=== PATIENT | male | born 1965 | race American Indian/Alaskan Native ===

== ENCOUNTER 2017-12-01 20:49 | Observation (INO) ==
[2017-12-01] MEDS ORDERED: Isovue-370 500 ML INFUS..BTL IV ONE ×2 (20:51→21:12)
--- NOTE | 2017-12-01 20:58 | Emergency Department Note ---
Disposition Clinical Impression: Neurological deficit present Altered mental status Qualifiers: Altered mental status type: unspecified Qualified Code(s): R41.82 - Altered mental status, unspecified Disposition: Admitted As Inpatient Condition: Fair Time of Disposition: 22:46 Neuro HPI - General Stated Complaint: Stroke Alert Time Seen by Provider: 12/01/17 20:50 Source: patient, EMS Mode of arrival: EMS Limitations: other (aphasia ) Nursing Notes Reviewed: Yes Vital Signs Reviewed: Yes - History of Present Illness HPI Narrative: Patient presents to the ED as an [id number] stroke alert. Patient was seen and evaluated immediately upon on arrival. On his way to CT. Reportedly 30 minutes prior to calling EMS. The patient had the abrupt onset of left- sided weakness and aphasia with dysarthria. No previous history of stroke. She also complaining of left-sided chest discomfort. He is unable to speak to his discomfort, but points to the area of his left chest and left shoulder with where the pain is. Denies any abdominal pain or vomiting. - Related Data Home Medications: Home Medications Medication Instructions Recorded Confirmed Flonase puff AER DAILY 12/02/17 Fluoxetine 20 mg PO DAILY 12/02/17 12/02/17 Gabapentin/Capsi/Me-Deacon/Menth 300 mg PO TID 12/02/17 12/02/17 Allergies/Adverse Reactions: Allergies Allergy/AdvReac Type Severity Reaction Status Date / Time morphine Allergy Anaphylaxis Verified 12/01/17 21:49 Review of Systems: As reviewed in the HPI. All other systems reviewed are negative or normal. Past Medical History - Past Medical History Attestation: Yes The following information was validated with the patient. Source: old records reviewed, obtained from family Physical Exam - General Limitations: other General appearance: alert, in no apparent distress - Head Head exam: atraumatic, normocephalic, normal inspection - Eye Eye exam: Present: normal appearance, PERRL, EOMI - ENT ENT exam: mucous membranes moist - Chest Chest inspection: Present: normal inspection, symmetric chest wall rise - Respiratory Respiratory exam: Present: normal lung sounds bilaterally - Cardiovascular Cardiovascular exam: Present: regular rate, normal rhythm, normal heart sounds - Abdominal Exam Abdominal exam: Present: soft, Non-Tender. Absent: tenderness, distention, guarding, rebound, rigidity - Extremities Exam Extremities exam: Absent: pedal edema - Neurological Exam Neurological exam: Present: alert, oriented X3, motor sensory deficit. Absent: CN II-XII intact, normal gait - Psychiatric Psychiatric exam: Present: flat affect - Skin Skin exam: Present: warm, dry, intact, normal color Course - Reevaluation(s) Reevaluation #1: Patient seen and evaluated immediately upon arrival, as the patient was going to CT. Brief exam showed paralysis of the left upper and left lower extremity. Absent of facial droop. mild Expressive aphasia and moderate dysarthria. Patient was able to state that he is also having left-sided chest pain, so we will add on a CTA chest, abdomen and pelvis to rule out aortic dissection due to the pain and neurological symptoms. No previous history of stroke. Time: 20:56 Reevaluation #2: Awaiting Stroke neurology evaluation Time: 21:45 - Consultations Consultation #1: Spoke with [facility], Dr. Joel. Negative for bleed or stroke. Time: 21:10 Consultation #2: Just now speaking with [facility] neurology on the phone. patient has been here for 1 hour. They state that they were never called about this patient despite the stroke alert being called prior to patient arrival. Will be on stroke robot shortly. Time: 21:49 Consultation #3: I was on the stroke robot in the posterior stroke neurologist did agree that the patient was not a TPA candidate. The patient has changed his story to state that the left arm numbness and weakness has been ongoing for 2 weeks and that he started having pain in that arm. At 1:30 PM today. He also states that at 5:30 PM his leg started hurting, but was unable to give us a clear starting point for his symptoms. His symptoms do not fit any anatomical or organic cause. His CT head and CT angios head and neck as well as chest, abdomen and pelvis were unremarkable. He did not feel that transfer to [place] would be beneficial that the patient would need an MRI head, CT and L- spine, which can be completed here. We will admit the patient to the hospital service with neurology consult in the morning. Time: 22:26 Vital Signs Temperature 97.8 F 12/01/17 20:53 Pulse Rate 98 12/01/17 20:53 Respiratory Rate 16 12/01/17 20:53 Blood Pressure 154/103 12/01/17 20:53 O2 Sat by Pulse Oximetry 98 12/01/17 20:53 Temperature 97.6 F 12/02/17 07:48 Pulse Rate 72 12/02/17 07:48 Respiratory Rate 16 12/02/17 07:48 Blood Pressure 129/95 12/02/17 07:48 O2 Sat by Pulse Oximetry 96 12/02/17 09:00 Oxygen Delivery Oxygen Delivery Room Air Neuro Symptoms/Deficit - Medical Records Medical records reviewed: Yes I reviewed the patient's medical records. - Lab Data Lab results reviewed: Yes I reviewed the patient's lab results. Result diagrams: 12/01/17 21:15 12/02/17 02:52 Lab Results 12/01/17 12/01/17 12/01/17 Range/Units 21:15 21:15 21:15 WBC 11.0 (4.3-11.1) K/mcL RBC 4.41 (4.19-5.50) M/mcL Hgb 13.2 (12.9-16.9) g/dL Hct 39.7 (37.5-50.1) % MCV 90.0 (83.0-100.0) fL MCH 29.9 (28.0-33.3) pg MCHC 33.2 (31.6-35.5) g/dL RDW 12.8 (11.5-14.5) % Plt Count 217 (140-400) K/mcL MPV 9.2 L (9.4-12.4) fL Immature Gran % 0.4 (0-4) % Seg Neutrophils % 63.1 % Lymphocytes % 28.0 % Monocytes % 6.8 % Eosinophils % 0.8 % Basophils % 0.9 % Neutrophils # 6.9 (1.6-8.9) K/mcL Lymphocytes # 3.1 (0.6-4.6) K/mcL Monocytes # 0.8 (0.0-1.3) K/mcL Eosinophils # 0.1 (0.0-0.6) K/mcL Basophils # 0.1 (0.0-0.2) K/mcL PT 10.8 (9.4-12.1) Seconds INR 1.0 APTT 29.0 (26.0-36.0) Seconds Sodium 140 (136-145) mEq/L Potassium 4.1 (3.5-5.1) mEq/L Chloride 108 H (98-107) mEq/L Carbon Dioxide 26 (23-29) mEq/L BUN 14 (6-20) mg/dL Creatinine 1.05 (0.70-1.30) mg/dL Est GFR ( Amer) > 60 (> 60) Est GFR (Non-Af Amer) > 60 (> 60) BUN/Creatinine Ratio 13 (6-26) Glucose 96 (70-105) mg/dL POC Glucose (70-99) mg/dL Calculated Osmolality 290 (280-300) Calcium 8.9 (8.6-10.3) mg/dL Troponin I < 0.03 (< 0.04) ng/mL Urine Opiates Screen (Oigupr=282) ng/mL Ur Barbiturates Screen (Vuvqqa=132) ng/mL Ur Phencyclidine Scrn (Cutoff=25) ng/mL Ur Amphetamines Screen (Paggkv=8932) ng/mL U Benzodiazepines Scrn (Viwjvt=546) ng/mL Urine Cocaine Screen (Cutoff= 300) ng/mL U Marijuana (THC) Screen (Cutoff = 50) ng/mL 12/01/17 12/01/17 Range/Units 21:26 23:00 WBC (4.3-11.1) K/mcL RBC (4.19-5.50) M/mcL Hgb (12.9-16.9) g/dL Hct (37.5-50.1) % MCV (83.0-100.0) fL MCH (28.0-33.3) pg MCHC (31.6-35.5) g/dL RDW (11.5-14.5) % Plt Count (140-400) K/mcL MPV (9.4-12.4) fL Immature Gran % (0-4) % Seg Neutrophils % % Lymphocytes % % Monocytes % % Eosinophils % % Basophils % % Neutrophils # (1.6-8.9) K/mcL Lymphocytes # (0.6-4.6) K/mcL Monocytes # (0.0-1.3) K/mcL Eosinophils # (0.0-0.6) K/mcL Basophils # (0.0-0.2) K/mcL PT (9.4-12.1) Seconds INR APTT (26.0-36.0) Seconds Sodium (136-145) mEq/L Potassium (3.5-5.1) mEq/L Chloride (98-107) mEq/L Carbon Dioxide (23-29) mEq/L BUN (6-20) mg/dL Creatinine (0.70-1.30) mg/dL Est GFR ( Amer) (> 60) Est GFR (Non-Af Amer) (> 60) BUN/Creatinine Ratio (6-26) Glucose (70-105) mg/dL POC Glucose 112 H (70-99) mg/dL Calculated Osmolality (280-300) Calcium (8.6-10.3) mg/dL Troponin I (< 0.04) ng/mL Urine Opiates Screen Negative (Clwwvm=296) ng/mL Ur Barbiturates Screen Negative (Cyuijy=117) ng/mL Ur Phencyclidine Scrn Negative (Cutoff=25) ng/mL Ur Amphetamines Screen Negative (Hqmxzb=8328) ng/mL U Benzodiazepines Scrn Negative (Hpebjf=692) ng/mL Urine Cocaine Screen Negative (Cutoff= 300) ng/mL U Marijuana (THC) Screen Negative (Cutoff = 50) ng/mL - Radiology Data Radiology results reviewed: Yes I reviewed the patient's radiology results. - EKG Data EKG attestation: Yes I reviewed and interpreted this EKG. EKG results narrative: Sinus rhythm, rate 92, WA interval 141, QRS 86, QTC 368, normal axis, no acute ischemic changes NIH Stroke Scale - Level of Consciousness LOC: Alert - LOC Questions LOC Questions: Answers both correctly - LOC Commands LOC Commands: Performs both correctly - Best Gaze Best Gaze: Normal - Visual Visual: No visual loss - Facial Palsy Facial Palsy: Partial, total, or near-total paralysis of lower face - Motor Arms Motor Arm-Left: No effort against gravity, limb falls to bed, some movement Motor Arm-Right: No drift for 10 seconds - Motor Legs Motor Leg-Left: No effort against gravity, limb falls to bed, some movement Motor Leg-Right: No drift for 5 seconds - Limb Ataxia Limb Ataxia: Absent of affected limb too weak to perform exam - Sensory Sensory: Mild to moderate loss, "not as sharp" - Best Language Best Language: Mild to moderate aphasia. Examiner can identify picture from response - Dysarthria Dysarthria: Mild, slurs some words - Extinction and Inattention Extinction and Inattention: Normal - NIHSS Total Score NIHSS Total Score: 11 Critical Care Time Critical Care Time: Yes Total Critical Care Time: 75 Attestation: I personally spent __75____ minutes devoted to the care of this critically ill patient. This time excludes the time for billable procedures. Oz - Oz Situation: Demographics, MOA Background: Presenting Complaint, Relevant PMH, Meds, & Allergies Assessment: Vital Signs, Course and respsone to treatment, Exam Concerns, Patient/Family Expectation, Pertinant Lab Results, Outstanding Labs Recommendation: Recommendation based on pending studies, treatments, or consults SJeff Report Given to: Dr. Arti Clinton Repor Time: 22:47 Attestation Statement - Attestation Attestation: I examined this patient and my medical decision-making was reviewed with the Resident Physician. I agree with the documented findings, disposition and treatment plan as described except to the extent set forth below. The high probability of a clinically significant, sudden or life threatening deterioration of the [cerebrovascular] system(s) required my full and direct attention, intervention and personal management. The aggregate critical care time was [35] minutes. This time is in addition to time spent performing reported procedures but includes the following: [x] Data Review and interpretation [x] Patient assessment and monitoring of vital signs [x] Documentation [x] Medication orders and management
[2017-12-01 21:25] LABS: Basophils # 0.1 K/mcL (0.0-0.2); Basophils % 0.9 %; Eosinophils # 0.1 K/mcL (0.0-0.6); Eosinophils % 0.8 %; Hematocrit 39.7 % (37.5-50.1); Hemoglobin 13.2 g/dL (12.9-16.9); Immature Granulocytes % 0.4 % (0-4); Lymphocytes # 3.1 K/mcL (0.6-4.6); Mean Corpuscular HGB Conc 33.2 g/dL (31.6-35.5); Mean Corpuscular Hemoglobin 29.9 pg (28.0-33.3); Mean Platelet Volume 9.2 fL (9.4-12.4); Monocytes # 0.8 K/mcL (0.0-1.3); Monocytes % 6.8 %; Neutrophils # 6.9 K/mcL (1.6-8.9); Platelet Count 217 K/mcL (140-400); Red Blood Count 4.41 M/mcL (4.19-5.50); Red Cell Distribution Width 12.8 % (11.5-14.5); Segmented Neutrophils % 63.1 %
[2017-12-01 21:31] LABS: Prothrombin Time 10.8 Seconds (9.4-12.1)
[2017-12-01 21:46] LABS: BUN/Creatinine Ratio 13 (6-26); Blood Urea Nitrogen 14 mg/dL (6-20); Calcium 8.9 mg/dL (8.6-10.3); Carbon Dioxide 26 mEq/L (23-29); Chloride 108 mEq/L (98-107); Glucose 96 mg/dL (70-105); Osmolality,Calculated 290 (280-300); Potassium 4.1 mEq/L (3.5-5.1); Sodium 140 mEq/L (136-145); Troponin I < 0.03 ng/mL (< 0.04); eGFR For African Americans > 60 (> 60); eGFR For Non-African Americans > 60 (> 60)
--- NOTE | 2017-12-01 21:49 | Emergency Department Note ---
Disposition Clinical Impression: Neurological deficit present Altered mental status Qualifiers: Altered mental status type: unspecified Qualified Code(s): R41.82 - Altered mental status, unspecified Disposition: Admitted As Inpatient Condition: Fair Forms: ED Satisfaction Letter Time of Disposition: 22:36 General Adult HPI - General Chief complaint: ED Altered Mental Status Stated complaint: Stroke Alert Time Seen by Provider: 12/01/17 20:50 Source: patient, EMS Mode of arrival: EMS Limitations: other - History of Present Illness Pain Scale: 0 - Related Data Allergies Allergy/AdvReac Type Severity Reaction Status Date / Time morphine Allergy Anaphylaxis Verified 12/01/17 21:49 Past Medical History - Past Medical History Medical history: Reports: seizures - Social History Smoking Status: Current every day smoker Alcohol use: Reports: none Drug use: Reports: none Physical Exam - General Limitations: other General appearance: alert, in no apparent distress Course - Reevaluation(s) Reevaluation #1: Spoke with [facility] Stroke Neurologist and will initiate tele-stroke evaluation Time: 21:54 Reevaluation #2: Patient has been evaluated by the stroke neurologist and his story has continued to change. He now reports he has had pain and weakness of his left arm for the past several days and his other symptoms and she started at 1:30 PM today. He is not a candidate for any type of intervention or TPA and at this point is less likely that this is an actual ischemic event. He will need further workup will be admitted at this facility. No ventricular arrhythmia has been noted throughout his time in the ED. Time: 22:35 Vital Signs Temperature 97.8 F 12/01/17 20:53 Pulse Rate 98 12/01/17 20:53 Respiratory Rate 16 12/01/17 20:53 Blood Pressure 154/103 12/01/17 20:53 O2 Sat by Pulse Oximetry 98 12/01/17 20:53 Temperature 97.8 F 12/01/17 20:53 Pulse Rate 112 12/01/17 22:24 Respiratory Rate 16 12/01/17 22:24 Blood Pressure 134/94 12/01/17 22:24 O2 Sat by Pulse Oximetry 97 12/01/17 22:24 Oxygen Delivery Oxygen Delivery Room Air Medical Decision Making - Lab Data Result diagrams: 12/01/17 21:15 12/01/17 21:15 Lab Results 12/01/17 12/01/17 12/01/17 Range/Units 21:15 21:15 21:15 WBC 11.0 (4.3-11.1) K/mcL RBC 4.41 (4.19-5.50) M/mcL Hgb 13.2 (12.9-16.9) g/dL Hct 39.7 (37.5-50.1) % MCV 90.0 (83.0-100.0) fL MCH 29.9 (28.0-33.3) pg MCHC 33.2 (31.6-35.5) g/dL RDW 12.8 (11.5-14.5) % Plt Count 217 (140-400) K/mcL MPV 9.2 L (9.4-12.4) fL Immature Gran % 0.4 (0-4) % Seg Neutrophils % 63.1 % Lymphocytes % 28.0 % Monocytes % 6.8 % Eosinophils % 0.8 % Basophils % 0.9 % Neutrophils # 6.9 (1.6-8.9) K/mcL Lymphocytes # 3.1 (0.6-4.6) K/mcL Monocytes # 0.8 (0.0-1.3) K/mcL Eosinophils # 0.1 (0.0-0.6) K/mcL Basophils # 0.1 (0.0-0.2) K/mcL PT 10.8 (9.4-12.1) Seconds INR 1.0 APTT 29.0 (26.0-36.0) Seconds Sodium 140 (136-145) mEq/L Potassium 4.1 (3.5-5.1) mEq/L Chloride 108 H (98-107) mEq/L Carbon Dioxide 26 (23-29) mEq/L BUN 14 (6-20) mg/dL Creatinine 1.05 (0.70-1.30) mg/dL Est GFR ( Amer) > 60 (> 60) Est GFR (Non-Af Amer) > 60 (> 60) BUN/Creatinine Ratio 13 (6-26) Glucose 96 (70-105) mg/dL Calculated Osmolality 290 (280-300) Calcium 8.9 (8.6-10.3) mg/dL Troponin I < 0.03 (< 0.04) ng/mL Attestation Statement - Attestation Attestation: I examined this patient and my medical decision-making was reviewed with the Resident Physician. I agree with the documented findings, disposition and treatment plan as described except to the extent set forth below. 52-year-old male presents ED because of stroke symptoms. He resides in a long-term house. He was witnessed to have a sudden onset of left- sided weakness and inability to speak and this was associated with left-sided chest pain as well. During EMS transport he was exhibiting a lot of ventricular arrhythmia and paramedics reported one self-limited run of V. tach. This resolved without treatment. Prehospital IV was placed and he was transported emergently without any other intervention. He is taken directly to the CT underwent CT of his head and CT of his chest followed by CT of his neck and head. Patient complains of pain in his left upper chest. Denies headache. Does complain of trouble speaking. Denies recent trauma. No history of strokes but does have a history of seizures with the last seizure being in over a month ago. Previously treated with phenobarbital but currently is being treated with gabapentin.
[2017-12-01] MEDS ORDERED: Aspirin 325 MG TABLET PO ONE (22:47)
[2017-12-01 23:24] LABS: Amphetamine Screen,Urine Negative ng/mL (Cutoff=1000); Barbiturate Screen,Urine Negative ng/mL (Cutoff=200); Benzodiazepines Screen,Urine Negative ng/mL (Cutoff=200); Cannabinoid Screen,Urine Negative ng/mL (Cutoff = 50); Cocaine Screen,Urine Negative ng/mL (Cutoff= 300); Opiate Screen,Urine Negative ng/mL (Cutoff=300); Phencyclidine Screen,Urine Negative ng/mL (Cutoff=25)
--- NOTE | 2017-12-02 00:35 | Internal Med History&Physical ---
Date of Encounter: 12/02/17 Time of Encounter: 00:31 Assessment and Plan (1) Left-sided weakness Current visit: Yes Status: Acute Left-sided weakness of both upper and lower extremity was suggests anterocerebral artery stroke CT of the head and CT angiogram of the neck and brain so far is normal we will obtain MRI and that consult neurology and then physical therapy (2) HTN (hypertension) Current visit: Yes Status: Chronic Qualifiers: Hypertension type: essential hypertension Qualified Code(s): I10 - Essential (primary) hypertension Internal Medicine - H&P: HPI Chief complaint: left sided weakness Admitted From: Emergency Dept Plans for Post Hospital Care: Home History of present illness: Mr. Serra is a 52 year old male Patient with no significant medical problem patient resides in [address] [facility] [address] . Patient was brought in due to acute left-sided weakness and inability to speak both left arm and the left leg. Emergency room blood pressure was unremarkable patient underwent multiple imaging including head CT which was negative and CTA of the chest, neck and brain all negative . his speech problem improved to almost normal but remains weak on the left side he will be admitted for follow evaluation with MRI and neurology consult. he denies any chest pain no visual disturbances no headache Past Med Surg Social Fam HX - Past Medical History Medical history: seizures - Social History Smoking Status: Current every day smoker Alcohol use: none Drug use: none Internal Medicine - H&P: Meds Flonase puff AER DAILY 12/02/17 [History] Fluoxetine 20 mg PO DAILY 12/02/17 [History] Gabapentin/Capsi/Me-Deacon/Menth 300 mg PO TID 12/02/17 [History] 3 Allergy/AdvReac Type Severity Reaction Status Date / Time morphine Allergy Anaphylaxis Verified 12/01/17 21:49 All Systems PM: A 10-system review of systems was performed and is negative for pertinent findings except as documented above in the HPI. - Constitutional Vitals: Temp Pulse Resp BP Pulse Ox 97.8 F 92 18 142/107 96 12/01/17 20:53 12/01/17 23:54 12/02/17 00:09 12/02/17 00:09 12/01/17 23:54 - Head Head exam: Present: atraumatic, normocephalic - Eye Eye exam: Present: PERRL, conjuntiva pink, sclera anicteric Pupils: Present: PERRL - Respiratory Respiratory exam: Present: CTAB. Absent: accessory muscle use, rales, rhonchi, wheezes - Cardiovascular Cardiovascular exam: Present: RRR, +S1, +S2. Absent: diastolic murmur, gallop, rubs, systolic murmur - GI/Abdominal GI/Abdominal exam: Present: normal bowel sounds, soft, no peritoneal signs. Absent: distended, tenderness - Neurological Exam Neurological exam: Present: motor sensory deficit Internal Med - H&P Results - Labs CBC & Chem 7: 12/01/17 21:15 12/01/17 21:15
[2017-12-02] MEDS ORDERED: traMADol 50 MG TABLET PO PRN (00:37)
[2017-12-02] MEDS ORDERED: Naloxone 0.4 MG/ML INJ IVP PRN (00:37)
[2017-12-02] MEDS: Gabapentin 300 MG CAPSULE PO SCH ×4 (02:27→20:36)
[2017-12-02] MEDS ORDERED: Benzocaine 20% 9 GM GEL..GRAM. TP PRN (02:37)
[2017-12-02 03:44] LABS: Alanine Aminotransferase 98 Units/L (7-52); Albumin 3.7 g/dL (3.5-5.7); Albumin/Globulin Ratio 1.4 (1.1-2.2); Alkaline Phosphatase 54 Units/L (34-104); Aspartate Amino Transferase 52 Units/L (13-39); BUN/Creatinine Ratio 14 (6-26); Bilirubin,Total 0.3 mg/dL (0.3-1.0); Blood Urea Nitrogen 13 mg/dL (6-20); Calcium 8.9 mg/dL (8.6-10.3); Carbon Dioxide 24 mEq/L (23-29); Chloride 107 mEq/L (98-107); Chol/HDL Ratio 3.9 (0-4.9); Cholesterol 148 mg/dL (< 200); Globulin 2.6 g/dL (2.4-3.5); Glucose 110 mg/dL (70-105); HDL Cholesterol 38 mg/dL (40-59); LDL Cholesterol,Calculated 92 mg/dL (0-99); Magnesium 1.8 mg/dL (1.6-2.6); Osmolality,Calculated 287 (280-300); Potassium 3.6 mEq/L (3.5-5.1); Sodium 138 mEq/L (136-145); Total Protein 6.3 g/dL (6.4-8.9); Triglycerides 88 mg/dL (< 150); eGFR For African Americans > 60 (> 60); eGFR For Non-African Americans > 60 (> 60)
[2017-12-02] MEDS: *HR* Enoxaparin 40 MG/0.4 ML SYRINGE SQ SCH (05:47)
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
[2017-12-02] MEDS: FLUoxetine 20 MG CAPSULE PO SCH (08:55)
[2017-12-02] MEDS ORDERED: Gabapentin 300 MG CAPSULE PO SCH (09:00)
[2017-12-02] MEDS: Acetaminophen 325 MG TABLET PO PRN (12:54)
--- NOTE | 2017-12-02 14:27 | Neurology - Consult Note ---
Date of Encounter: 12/02/17 Time of Encounter: 14:24 Assessment and Plan (1) Left-sided weakness Current Visit: Yes Status: Acute This patient's presentation is not consistent with what one would expect for an acute cerebral infarct. To begin with his complaints are inconsistent between providers. He also has no bulbar weakness, including no evidence of facial weakness or dysarthria. Such a dense left-sided weakness is not at all consistent with this. The pain in the extremity is also not common with acute cerebral infarct. His unwillingness to undergo the necessary testing to secure a dx is also not consistent. Unfortunately I have nothing more to offer. I suspect conversion vs. malingeering. I would treat empirically for stroke including ASA 81mg QD and PT/OT. His stroke w/u is negative. It is difficult to reproduce his deficits via occlusion of any single vessel, or any silgle brain lesion.Will reevaluate at your request. History of Present Illness HPI: Mr. Serra is a 52 year old male who is seen for neurologic consultation secondary to left upper and left lower extremity weakness. This gentleman apparently lives in a long-term house and was brought in yesterday secondary to acute left-sided weakness and inability to speak of. Apparently his story however has been inconsistent by the account of different evaluators. He is had varying complaints of speech difficulty confusion left arm and left leg weakness. He has had complaints of pain that were inconsistent and not a part of his initial chief complaint. He has had CTA scan of his brain as well as CTA of the neck which were negative. He is refusing MRI scan of the brain because of claustrophobia and he states that he has been drug free for a month and does not want to be sedated. Currently he is awake alert and lucid he gives his own medical history. His speech is clear I see no facial droop he is not encephalopathic or confused. Past Med Surg Social Fam HX - Past Medical History Medical history: asthma, COPD, hypertension, seizures Psychiatric history: anxiety, depression - Social History Smoking Status: Former smoker Packs per day: 1.5 Smokeless Tobacco Status: No Alcohol use: none Drug use: marijuana - Family History Mother Family Member Ethnicity: Non- Living Status: Age at : 71 Hx Family Cancer: Yes (Lung cancer.) Medications and Allergies Flonase puff AER DAILY 12/02/17 [History] Fluoxetine 20 mg PO DAILY 12/02/17 [History] Gabapentin/Capsi/Me-Deacon/Menth 300 mg PO TID 12/02/17 [History] 3 Allergy/AdvReac Type Severity Reaction Status Date / Time morphine Allergy Anaphylaxis Verified 12/01/17 21:49 All Systems: The remainder of the systems were reviewed and are negative Review of Systems: Ten point review of systems is consistent with a history of present illness and otherwise negative. Physical Examination - Vital Signs Vital Signs: Initial Vital Signs Temp Pulse Resp BP Pulse Ox 97.8 F 98 16 154/103 98 12/01/17 20:53 12/01/17 20:53 12/01/17 20:53 12/01/17 20:53 12/01/17 20:53 - Neurologic Detailed motor examination: grossly full strength in all extremities (There is flaccid weakness of the left upper and left lower extremity however , he will not allow his left arm to fall onto his face. There are no involuntary movements or atrophy present. Patient was also able to stand on his left leg fairly well when transferring to the bed.) Detailed sensory examination: other (He complains of numbness of the left upper and left lower extremities.) Reflexes: Biceps: 1+ (Symmetrically), Triceps: 1+ ("), Brachioradialis: 1+ ("), Patella: 1+ ("), Achilles: 1+ (") Mental Status Examination: awake, alert, oriented to person, oriented to place, oriented to time, follows commands appropriately, answers questions appropriately, no agnosia, no aphasia, no aproxia Cranial nerve examination: PERRL, EOMI, visual hope intact, corneal reflexes brisk symmetrically, sensory to face intact, mastication intact, no facial asymmetry is present, no dysarthria, hearing is intact symmetrically, soft palate elevates bilaterally upon phonation, gag reflex intact, flexes SCM and trapezius muscles symmetrically with full power, tongue protrudes midline, no atrophy or facial fasiculations present Results - Laboratory Findings CBC and BMP: 12/01/17 21:15 12/02/17 02:52 Abnormal lab findings: Abnormal lab results MPV 9.2 fL (9.4-12.4) L 12/01/17 21:15 Glucose 110 mg/dL (70-105) H 12/02/17 02:52 POC Glucose 112 mg/dL (70-99) H 12/01/17 21:26 AST 52 Units/L (13-39) H 12/02/17 02:52 ALT 98 Units/L (7-52) H 12/02/17 02:52 Serum Total Protein 6.3 g/dL (6.4-8.9) L 12/02/17 02:52 HDL Cholesterol 38 mg/dL (40-59) L 12/02/17 02:52 Consult Discharge Plan - Plan Referrals: NONE,PCP [Primary Care Provider] -
[2017-12-02] MEDS: Aspirin 325 MG TABLET PO SCH (20:36)
[2017-12-03 05:13] LABS: BUN/Creatinine Ratio 18 (6-26); Blood Urea Nitrogen 14 mg/dL (6-20); Calcium 9.2 mg/dL (8.6-10.3); Carbon Dioxide 24 mEq/L (23-29); Chloride 107 mEq/L (98-107); Glucose 94 mg/dL (70-105); Osmolality,Calculated 284 (280-300); Sodium 137 mEq/L (136-145); eGFR For African Americans > 60 (> 60); eGFR For Non-African Americans > 60 (> 60)
[2017-12-03] MEDS: *HR* Enoxaparin 40 MG/0.4 ML SYRINGE SQ SCH (07:03)
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
[2017-12-03] MEDS ORDERED: Fluticasone Propionate Nasal 50 MCG/SPRAY BOTTLE NS PRN (09:19)
[2017-12-03] MEDS: FLUoxetine 20 MG CAPSULE PO SCH (10:28)
[2017-12-03] MEDS: Aspirin 325 MG TABLET PO SCH (10:28)
[2017-12-03] MEDS: Gabapentin 300 MG CAPSULE PO SCH ×3 (10:28→20:17)
[2017-12-03] MEDS: Fluticasone Propionate Nasal 50 MCG/SPRAY BOTTLE NS SCH (10:33)
[2017-12-03] MEDS: Ipratropium 1 PUFF INHALER IH PRN ×3 (10:40→23:46)
[2017-12-03 15:09] LABS: Potassium 4.4 mEq/L (3.5-5.1)
[2017-12-03] MEDS: Nicotine 14 MG PATCH.TD24 TD SCH (15:21)
[2017-12-03 15:53] LABS: Thyroid Stimulating Hormone 1.127 mcIU/mL (0.340-5.600)
[2017-12-03] MEDS: Acetaminophen 325 MG TABLET PO PRN (20:19)
[2017-12-04] MEDS: Acetaminophen 325 MG TABLET PO PRN ×2 (04:12→21:27)
[2017-12-04] MEDS: *HR* Enoxaparin 40 MG/0.4 ML SYRINGE SQ SCH (06:02)
[2017-12-04] MEDS: Nicotine 14 MG PATCH.TD24 TD SCH (10:12)
[2017-12-04] MEDS: Gabapentin 300 MG CAPSULE PO SCH ×3 (10:13→21:14)
[2017-12-04] MEDS: Aspirin 325 MG TABLET PO SCH (10:14)
[2017-12-04] MEDS: FLUoxetine 20 MG CAPSULE PO SCH (10:14)
[2017-12-04] MEDS: Fluticasone Propionate Nasal 50 MCG/SPRAY BOTTLE NS SCH (10:14)
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
[2017-12-04] MEDS: Ipratropium 1 PUFF INHALER IH PRN (14:17)
[2017-12-05] MEDS: *HR* Enoxaparin 40 MG/0.4 ML SYRINGE SQ SCH (04:51)
--- NOTE | 2017-12-05 05:32 | Electrocardiograph Report ---
[place] [id number] Test Date: 2017-12-01 Pat Name: Sunil Serra Department: 103 Room: [facility] Gender: M Manager Gyn: TITI : 1965 Requested By: Esteban Cih Order Number: [id number] Reading MD: Loc Layton Measurements Intervals [place] Rate: 92 P: 71 IA: 141 QRS: 57 QRSD: 86 T: 62 QT: 319 QTc: 368 Interpretive Statements SINUS RHYTHM Electronically Signed On 12-05-2017 5:30:51 EDT by Loc Layton
[2017-12-05] MEDS: Nicotine 14 MG PATCH.TD24 TD SCH (07:45)
[2017-12-05] MEDS: FLUoxetine 20 MG CAPSULE PO SCH (07:45)
[2017-12-05] MEDS: Gabapentin 300 MG CAPSULE PO SCH ×3 (07:45→20:42)
[2017-12-05] MEDS: Fluticasone Propionate Nasal 50 MCG/SPRAY BOTTLE NS SCH (07:45)
[2017-12-05] MEDS: Aspirin 325 MG TABLET PO SCH (07:45)
--- NOTE | 2017-12-05 09:15 | Discharge Summary ---
<TimoteoAndrew - Last Filed: 12/05/17 10:41> Date of Encounter: 12/05/17 Time of Encounter: 10:04 - Discharge Diagnosis (1) Left-sided weakness Priority: Primary Status: Acute (2) CVA (cerebral vascular accident) Priority: Primary Status: Suspected Assessment and Plan: Left-sided paralysis of both upper and lower extremity persist Initial CT of the head and CT angiogram of the head and neck are negative; pt unable to tolerate MRI -- repeat head CT at 72hrs negative Unable to determine organic etiology, but at deficits persist, patient will need ongoing rehab on IP basis Qualifiers: CVA mechanism: occlusion Precerebral and cerebral artery: anterior cerebral artery Laterality of affected vessel: unspecified Qualified Code(s) : I63.529 - Cerebral infarction due to unspecified occlusion or stenosis of unspecified anterior cerebral artery (3) Seizure disorder Priority: Secondary Status: Chronic Assessment and Plan: Continue home Gabapentin (4) Tobacco dependence Priority: Secondary Status: Chronic (5) Asthma Priority: Secondary Status: Chronic Assessment and Plan: Continue home meds. Patient request inhaler refill prior to discharge Qualifiers: Asthma severity: mild Asthma persistence: intermittent Asthma complication type: uncomplicated Qualified Code(s): J45.20 - Mild intermittent asthma, uncomplicated Hospital course: Mr. Serra is a 52 year old male resident from [facility] initially presented with new speech deficits and LUE/LLE weakness of sudden onset on . Initial work up negative including head CT. Speech deficit spontaneously resolved. Neuro consulted on case recommending MRI of brain to which patient declined; neuro signed off with ddx to include malingering & conversion disorder. Repeated CT head non-contrast on 12/04/17 which showed now new findings compared to initial. Neuro started ASA and recommends PT/OT for presumptive diagnosis of CVA. Pt continues to have LUE/LLE weakness despite discovery of organic pathology. Pt will need ongoing rehab for persistent motor deficits. Has otherwise been stable with no other abnormalities detected on ancillary studies throughout including labs and echocardiogram. Will be discharged in stable condition for rehab pending bed availability. Discharge discussed with: patient - Time Spent with Patient Total time spent providing and/or coordinating discharge services: - Discharge Medications Prescriptions: Ipratropium [ATROVENT Inhaler] 2 puff IH [id number] PRN #1 inhaler PRN Reason: Shortness Of Breath/Wheezing Aspirin 325 mg PO DAILY #30 tablet Gabapentin [Neurontin] 300 mg PO TID 30 Days #90 capsule Home Medications: FLUoxetine HCl [Prozac] 20 mg PO DAILY 12/02/17 [History] Fluticasone Propionate Nasal [Flonase] 50 mcg NS DAILY 12/02/17 [History] Aspirin 325 mg PO DAILY #30 tablet 12/05/17 [Rx] Gabapentin [Neurontin] 300 mg PO TID 30 Days #90 capsule 12/05/17 [Rx] Ipratropium [ATROVENT Inhaler] 2 puff IH [id number] PRN #1 inhaler 12/05/17 [Rx] Allergies/Adverse Reactions: 3 Allergy/AdvReac Type Severity Reaction Status Date / Time morphine Allergy Anaphylaxis Verified 12/01/17 21:49 Date of admission: 12/01/17 23:27 Primary care physician: PCP NONE Consults: 12/02/17 00:54 Consult to Nutrition [CONS] Routine Comment: Consulting Provider: NUTRITION Reason for Dietary Consult: MST Score Consult to Machine Pan Greaser [CONS] Routine Reason for SW Consult: Homeless, now living at [facility]. New diagnosis of stroke. 12/02/17 01:05 Consult to Neurology [CONS] Routine Consulting Provider: Neurology [facility] Reason for Consult: left sided weakness Call Completed: No 12/02/17 09:19 Consult to Occupational Therapy [CONS] Routine Comment: Evaluate, develop and implement POC Reason for Consult: Left sided paralysis Does patient have active BEDREST order?: No Is patient medically & hemodynamically stable?: Yes Patient assessed for mobility or mobilized this visit?: No Consult to Physical Therapy [CONS] Routine Comment: Evaluate, develop and implement POC Reason for Consult: Left sided paralysis Does patient have active BEDREST order?: No Is patient medically & hemodynamically stable?: Yes Patient assessed for mobility or mobilized this visit?: No 12/02/17 09:55 Consult to Speech Therapy [CONS] Routine Comment: Evaluate, develop and implement POC Reason for Consult: Dysphagia, CVA Time Notified: 09:55 Call Completed: Yes Discharging clinician: Andrew Mahmood Anticipated date of discharge: 12/05/17 - Constitutional Vitals: Temp Pulse Resp BP Pulse Ox 97.5 F L 84 18 125/84 98 12/05/17 07:00 12/05/17 07:00 12/05/17 07:00 12/05/17 07:00 12/05/17 07:00 General appearance: Present: cooperative, A&O X 3, pleasant, no acute distress, answers questions appropriately - Head Head exam: Present: atraumatic, normocephalic - Eye Eye exam: Present: PERRL, conjuntiva pink, sclera anicteric - Respiratory Respiratory exam: Present: CTAB. Absent: accessory muscle use, rales, respiratory distress, rhonchi, stridor, wheezes, tachypnea - Cardiovascular Cardiovascular exam: Present: RRR, +S1, +S2, tachycardia ( 100 bpm). Absent: diastolic murmur, gallop, rubs, systolic murmur - GI/Abdominal GI/Abdominal exam: Present: soft. Absent: distended, tenderness - Extremities Exam Extremities exam: Present: warm, radial pulses palpable and symmetrical. Absent : calf tenderness, cyanotic, pedal edema - Neurological Exam Neurological exam: Present: oriented X3. Absent: facial droop, speech deficit Additional comments: Pt in wheelchair and moves with use of RLE. Does not move LUE or LLE at all and is weak with active use on command. Sensation intact throughout. No speech deficits and no facial asymmetry. - Psychiatric Psychiatric exam: Present: anxious - Skin Skin exam: Present: dry, intact, normal color - Patient Status Disposition: Transfer Inpatient Rehab Fac Condition: Fair Overall status at discharge: patient is not back to baseline - Discharge Instructions Follow Up With: [facility] [Outside] (Needs to get established and have hospital follow up) - Diet and Activity Activity: as per physical therapy Diet: advance to your usual diet <Ellis Lomeli H - Last Filed: 12/05/17 14:42> Date of Encounter: 12/05/17 - Discharge Diagnosis (1) Left-sided weakness Status: Acute (2) CVA (cerebral vascular accident) Status: Suspected Qualifiers: CVA mechanism: occlusion Precerebral and cerebral artery: anterior cerebral artery Laterality of affected vessel: unspecified Qualified Code(s) : I63.529 - Cerebral infarction due to unspecified occlusion or stenosis of unspecified anterior cerebral artery (3) Seizure disorder Status: Chronic (4) Tobacco dependence Status: Chronic (5) Asthma Status: Chronic Qualifiers: Asthma severity: mild Asthma persistence: intermittent Asthma complication type: uncomplicated Qualified Code(s): J45.20 - Mild intermittent asthma, uncomplicated Hospital course: Mr. Serra is a 52 year old male - Time Spent with Patient Total time spent providing and/or coordinating discharge services: Date of admission: 12/01/17 23:27 Primary care physician: PCP NONE Consults: 12/02/17 00:54 Consult to Nutrition [CONS] Routine Comment: Consulting Provider: NUTRITION Reason for Dietary Consult: MST Score Consult to Machine Pan Greaser [CONS] Routine Reason for SW Consult: Homeless, now living at [facility]. New diagnosis of stroke. 12/02/17 01:05 Consult to Neurology [CONS] Routine Consulting Provider: Neurology [facility] Reason for Consult: left sided weakness Call Completed: No 12/02/17 09:19 Consult to Occupational Therapy [CONS] Routine Comment: Evaluate, develop and implement POC Reason for Consult: Left sided paralysis Does patient have active BEDREST order?: No Is patient medically & hemodynamically stable?: Yes Patient assessed for mobility or mobilized this visit?: No Consult to Physical Therapy [CONS] Routine Comment: Evaluate, develop and implement POC Reason for Consult: Left sided paralysis Does patient have active BEDREST order?: No Is patient medically & hemodynamically stable?: Yes Patient assessed for mobility or mobilized this visit?: No 12/02/17 09:55 Consult to Speech Therapy [CONS] Routine Comment: Evaluate, develop and implement POC Reason for Consult: Dysphagia, CVA Time Notified: 09:55 Call Completed: Yes - Constitutional Vitals: Temp Pulse Resp BP Pulse Ox 97.5 F L 84 18 125/84 98 12/05/17 07:00 12/05/17 07:00 12/05/17 07:00 12/05/17 07:00 12/05/17 07:00 - Attending Attestation Left-sided paralysis of both upper and lower extremity , possible CVA Refused MRI despite explaining the need to demonstrate this possible diagnosis Possible conversion disorder or malingering per Neurology stable to discharge time spent : 40 min I examined this patient and my medical decision-making was reviewed with the Resident Physician. I agree with the documented findings, disposition and treatment plan as described except to the extent set forth below.
--- NOTE | 2017-12-05 09:18 | Physician Discharge Referral ---
<Andrew Mahmood - Last Filed: 12/05/17 10:48> ExtendedCare Referral Info Transfer To: [facility] / SNF Provider in Charge after Transfer: PCP - Diagnosis (1) Left-sided weakness Priority: Primary Status: Acute (2) CVA (cerebral vascular accident) Priority: Primary Status: Suspected (3) Seizure disorder Priority: Primary Status: Chronic (4) Tobacco dependence Priority: Secondary Status: Chronic (5) Asthma Priority: Secondary Status: Chronic Prognosis: Fair Aware of Diagnosis: Patient - Transfer Medications Prescriptions: Ipratropium [ATROVENT Inhaler] 2 puff IH [id number] PRN #1 inhaler PRN Reason: Shortness Of Breath/Wheezing Aspirin 325 mg PO DAILY #30 tablet Gabapentin [Neurontin] 300 mg PO TID 30 Days #90 capsule Home Medications: FLUoxetine HCl [Prozac] 20 mg PO DAILY 12/02/17 [History] Fluticasone Propionate Nasal [Flonase] 50 mcg NS DAILY 12/02/17 [History] Aspirin 325 mg PO DAILY #30 tablet 12/05/17 [Rx] Gabapentin [Neurontin] 300 mg PO TID 30 Days #90 capsule 12/05/17 [Rx] Ipratropium [ATROVENT Inhaler] 2 puff IH [id number] PRN #1 inhaler 12/05/17 [Rx] Allergies/Adverse Reactions: 3 Allergy/AdvReac Type Severity Reaction Status Date / Time morphine Allergy Anaphylaxis Verified 12/01/17 21:49 - Respiratory Orders Oxygen / L per min (PRN) Smoking Cessation: Smoking cessation has been advised. For more information, call the [place] Tobacco Quit Line at 3-857-NZHR-NOW. - Ancillary Orders May use pressure relief devices daily prn, May go on [place] w/family/respon green party w /meds at nurse discretion PRN, May consult with Dentist, Chief Of Internal Medicine, Printed Circuit Board Designer PRN - Advance Directives Code Status: Full Code - Mobility Orders Chair - Rehabiliation Orders Rehab Potential: Good Rehab Orders: ROM Exercises, Evaluation for Physical Therapy, Evaluation for Occupational Therapy, Evaluation for Speech Therapy - Treatments Skin tear care topically daily PRN per policy, May check for fecal impaction rectally daily PRN, Fleet enema rectally every other day PRN cleansing purposes - Diet Orders Regular CERTIFICATION: I certify that the transfer of the above named patient to an Extended Care Facility is necessary for the continuing treatment of the diagnosis listed. The above information is true and accurate reflection of patient's current condition. Confidential - Redisclosure prohibited without a patient's written consent. <Ellis Lomeli Ronald - Last Filed: 12/05/17 14:43> - Diagnosis (1) Left-sided weakness Status: Acute (2) CVA (cerebral vascular accident) Status: Suspected (3) Seizure disorder Status: Chronic (4) Tobacco dependence Status: Chronic (5) Asthma Status: Chronic - Respiratory Orders Smoking Cessation: Smoking cessation has been advised. For more information, call the [place] Tobacco Quit Line at 6-777-PMPKNOW. CERTIFICATION: I certify that the transfer of the above named patient to an Extended Care Facility is necessary for the continuing treatment of the diagnosis listed. The above information is true and accurate reflection of patient's current condition. Confidential - Redisclosure prohibited without a patient's written consent.
[2017-12-05] MEDS: Acetaminophen 325 MG TABLET PO PRN (21:05)
[2017-12-06] MEDS: *HR* Enoxaparin 40 MG/0.4 ML SYRINGE SQ SCH (05:59)
[2017-12-06] MEDS: Aspirin 325 MG TABLET PO SCH (08:55)
[2017-12-06] MEDS: Fluticasone Propionate Nasal 50 MCG/SPRAY BOTTLE NS SCH (08:55)
[2017-12-06] MEDS: FLUoxetine 20 MG CAPSULE PO SCH (08:55)
[2017-12-06] MEDS: Gabapentin 300 MG CAPSULE PO SCH ×3 (08:55→20:02)
[2017-12-06] MEDS: Nicotine 14 MG PATCH.TD24 TD SCH (08:56)
--- NOTE | 2017-12-06 11:43 | Internal Med Progress Note ---
<Andrew Mahmood - Last Filed: 12/06/17 11:40> Date of Encounter: 12/06/17 Time of Encounter: 11:41 - Assessment and plan (1) Left-sided weakness Current Visit: Yes Status: Acute Assessment and plan: No new plans; pending D/C to rehab facility. (2) CVA (cerebral vascular accident) Current Visit: Yes Status: Suspected Assessment and plan: No new plans; pending D/C to rehab facility. Left-sided paralysis of both upper and lower extremity persist Initial CT of the head and CT angiogram of the head and neck are negative; pt unable to tolerate MRI -- repeat head CT at 72hrs negative Unable to determine organic etiology, but at deficits persist, patient will need ongoing rehab on IP basis Qualifiers: CVA mechanism: occlusion Precerebral and cerebral artery: anterior cerebral artery Laterality of affected vessel: unspecified Qualified Code(s) : I63.529 - Cerebral infarction due to unspecified occlusion or stenosis of unspecified anterior cerebral artery (3) Seizure disorder Current Visit: No Status: Chronic Assessment and plan: Continue home Gabapentin (4) Tobacco dependence Current Visit: No Status: Chronic Assessment and plan: No new plans; pending D/C to rehab facility. (5) Asthma Current Visit: Yes Status: Chronic Assessment and plan: Continue home meds. Patient request inhaler refill prior to discharge Qualifiers: Asthma severity: mild Asthma persistence: intermittent Asthma complication type: uncomplicated Qualified Code(s): J45.20 - Mild intermittent asthma, uncomplicated - Time Spent With Patient Total time spent is greater than 50% in coordination of care (as documented) at patient's floor/unit and/or counseling patient: - Subjective Interval history: No new complaints. Possible placement at [facility]; awaiting onsite visit with patient. - Constitutional Vitals: Temp Pulse Resp BP Pulse Ox 97.9 F 88 18 142/92 97 12/06/17 06:59 12/06/17 06:59 12/06/17 06:59 12/06/17 06:59 12/06/17 06:59 General appearance: Present: cooperative, A&O X 3, pleasant, no acute distress , answers questions appropriately Head exam: Present: atraumatic, normocephalic Eye exam: Present: PERRL, conjuntiva pink, sclera anicteric Respiratory exam: Present: CTAB. Absent: accessory muscle use, rales, respiratory distress, rhonchi, stridor, wheezes, tachypnea Cardiovascular exam: Present: RRR, +S1, +S2, tachycardia ( 100 bpm). Absent: diastolic murmur, gallop, rubs, systolic murmur GI/Abdominal exam: Present: soft. Absent: distended, tenderness Extremities exam: Present: warm, radial pulses palpable and symmetrical. Absent : calf tenderness, cyanotic, pedal edema Neurological exam: Present: oriented X3. Absent: facial droop, speech deficit. -- Additional comments: Pt in wheelchair and moves with use of RLE. Does not move LUE or LLE at all and is weak with active use on command. Sensation intact throughout. No speech deficits and no facial asymmetry. Psychiatric exam: Present: anxious Skin exam: Present: dry, intact, normal color General appearance: Present: cooperative, A&O X 3, pleasant, no acute distress, answers questions appropriately Internal Medicine: Result - Labs CBC & Chem 7: 12/01/17 21:15 12/03/17 14:37 - ABG Interpretation ABG results: PT/INR, D-dimer PT 10.8 Seconds (9.4-12.1) 12/01/17 21:15 Consult Discharge Plan - Plan Referrals: [facility] [Outside] (Needs to get established and have hospital follow up) Prescriptions: Ipratropium [ATROVENT Inhaler] 2 puff IH [id number] PRN #1 inhaler PRN Reason: Shortness Of Breath/Wheezing Aspirin 325 mg PO DAILY #30 tablet Gabapentin [Neurontin] 300 mg PO TID 30 Days #90 capsule <Ellis Lomeli H - Last Filed: 12/06/17 14:04> Date of Encounter: 12/06/17 - Assessment and plan (1) Left-sided weakness Current Visit: Yes Status: Acute (2) CVA (cerebral vascular accident) Current Visit: Yes Status: Suspected Qualifiers: CVA mechanism: occlusion Precerebral and cerebral artery: anterior cerebral artery Laterality of affected vessel: unspecified Qualified Code(s) : I63.529 - Cerebral infarction due to unspecified occlusion or stenosis of unspecified anterior cerebral artery (3) Seizure disorder Current Visit: No Status: Chronic (4) Tobacco dependence Current Visit: No Status: Chronic (5) Asthma Current Visit: Yes Status: Chronic Qualifiers: Asthma severity: mild Asthma persistence: intermittent Asthma complication type: uncomplicated Qualified Code(s): J45.20 - Mild intermittent asthma, uncomplicated - Time Spent With Patient Total time spent is greater than 50% in coordination of care (as documented) at patient's floor/unit and/or counseling patient: - Constitutional Vitals: Temp Pulse Resp BP Pulse Ox 97.9 F 88 18 142/92 97 12/06/17 06:59 12/06/17 06:59 12/06/17 06:59 12/06/17 06:59 12/06/17 06:59 Internal Medicine: Result - Labs CBC & Chem 7: 12/01/17 21:15 12/03/17 14:37 - ABG Interpretation ABG results: PT/INR, D-dimer PT 10.8 Seconds (9.4-12.1) 12/01/17 21:15 - Attending Attestation Left-sided paralysis of both upper and lower extremity , possible CVA Refused MRI despite explaining the need to demonstrate this possible diagnosis Possible conversion disorder or malingering per Neurology stable to discharge awaiting placement I examined this patient and my medical decision-making was reviewed with the Resident Physician. I agree with the documented findings, disposition and treatment plan as described except to the extent set forth below.
[2017-12-06] MEDS: Acetaminophen 325 MG TABLET PO PRN (20:04)
[2017-12-06] MEDS: Ipratropium 1 PUFF INHALER IH PRN (20:08)
[2017-12-07] MEDS: *HR* Enoxaparin 40 MG/0.4 ML SYRINGE SQ SCH (06:18)
[2017-12-07] MEDS: FLUoxetine 20 MG CAPSULE PO SCH (08:11)
[2017-12-07] MEDS: Nicotine 14 MG PATCH.TD24 TD SCH (08:11)
[2017-12-07] MEDS: Gabapentin 300 MG CAPSULE PO SCH ×3 (08:11→21:04)
[2017-12-07] MEDS: Fluticasone Propionate Nasal 50 MCG/SPRAY BOTTLE NS SCH (08:11)
[2017-12-07] MEDS: Aspirin 325 MG TABLET PO SCH (08:11)
[2017-12-07] MEDS: Acetaminophen 325 MG TABLET PO PRN ×2 (08:15→21:04)
--- NOTE | 2017-12-07 08:16 | Internal Med Progress Note ---
<Andrew Mahmood - Last Filed: 12/07/17 08:13> Date of Encounter: 12/07/17 Time of Encounter: 08:13 - Assessment and plan (1) Left-sided weakness Current Visit: Yes Status: Acute Assessment and plan: No new plans; pending D/C to rehab facility. (2) CVA (cerebral vascular accident) Current Visit: Yes Status: Suspected Assessment and plan: No new plans; pending D/C to rehab facility. Left-sided paralysis of both upper and lower extremity persist Initial CT of the head and CT angiogram of the head and neck are negative; pt unable to tolerate MRI -- repeat head CT at 72hrs negative Unable to determine organic etiology, but at deficits persist Qualifiers: CVA mechanism: occlusion Precerebral and cerebral artery: anterior cerebral artery Laterality of affected vessel: unspecified Qualified Code(s) : I63.529 - Cerebral infarction due to unspecified occlusion or stenosis of unspecified anterior cerebral artery (3) Seizure disorder Current Visit: No Status: Chronic Assessment and plan: Continue home Gabapentin (4) Tobacco dependence Current Visit: No Status: Chronic Assessment and plan: No new plans; pending D/C to rehab facility. (5) Asthma Current Visit: Yes Status: Chronic Assessment and plan: Continue home meds. Patient request inhaler refill prior to discharge Qualifiers: Asthma severity: mild Asthma persistence: intermittent Asthma complication type: uncomplicated Qualified Code(s): J45.20 - Mild intermittent asthma, uncomplicated - Time Spent With Patient Total time spent is greater than 50% in coordination of care (as documented) at patient's floor/unit and/or counseling patient: - Subjective Interval history: No new complaints. Awaiting placement. Per KNUCKLE BENDER note: "CALL TO [facility] SNF[facility]EC[facility] IN [place] SPOKE WITH MONTRELL, WHO STATED SHE COMPLETED ON SITE VISIT, ASSESSMENT WITH PT OVERALL SHE FEELS THEY COULD ACCEPT PT AND PROVIDE PT WITH THERAPY BUT SHE STATED ULTIMATELY THE DECISION WILL BE MADE BY THEIR DETECTIVE [facility] AND SHE WILL CALL TO UPDATE TOMORROW, 12/07. INFORMED PT AND NURSING STAFF CONTINUE TO AWAIT ACCEPTANCE AT [facility]." - Constitutional Vitals: Temp Pulse Resp BP Pulse Ox 97.7 F 97 18 142/98 98 12/07/17 07:00 12/07/17 07:00 12/07/17 07:00 12/07/17 07:00 12/07/17 07:00 Stable Exam General appearance: Present: cooperative, A&O X 3, pleasant, no acute distress, answers questions appropriately Head exam: Present: atraumatic, normocephalic Eye exam: Present: PER, conjuntiva pink, sclera anicteric Respiratory exam: Present: CTAB. Absent: accessory muscle use, rales, respiratory distress, rhonchi, stridor, wheezes, tachypnea Cardiovascular exam: Present: RRR, +S1, +S2. Absent: diastolic murmur, gallop, rubs, systolic murmur GI/Abdominal exam: Present: soft. Absent: distended, tenderness Extremities exam: Present: warm, radial pulses palpable and symmetrical. Absent : calf tenderness, cyanotic, pedal edema Neurological exam: Present: oriented X3. Absent: facial droop, speech deficit. -- Additional comments: persistent LUE & LLE weakness. Sensation intact throughout. No speech deficits and no facial asymmetry. Skin exam: Present: dry, intact, normal color General appearance: Present: cooperative, A&O X 3, pleasant, no acute distress, answers questions appropriately Internal Medicine: Result - Labs CBC & Chem 7: 12/01/17 21:15 12/03/17 14:37 - ABG Interpretation ABG results: PT/INR, D-dimer PT 10.8 Seconds (9.4-12.1) 12/01/17 21:15 Consult Discharge Plan - Plan Referrals: [facility] [Outside] (Needs to get established and have hospital follow up) Prescriptions: Ipratropium [ATROVENT Inhaler] 2 puff IH [id number] PRN #1 inhaler PRN Reason: Shortness Of Breath/Wheezing Aspirin 325 mg PO DAILY #30 tablet Gabapentin [Neurontin] 300 mg PO TID 30 Days #90 capsule <Ellis Lomeli H - Last Filed: 12/07/17 15:57> Date of Encounter: 12/07/17 - Assessment and plan (1) Left-sided weakness Current Visit: Yes Status: Acute (2) CVA (cerebral vascular accident) Current Visit: Yes Status: Suspected Qualifiers: CVA mechanism: occlusion Precerebral and cerebral artery: anterior cerebral artery Laterality of affected vessel: unspecified Qualified Code(s) : I63.529 - Cerebral infarction due to unspecified occlusion or stenosis of unspecified anterior cerebral artery (3) Seizure disorder Current Visit: No Status: Chronic (4) Tobacco dependence Current Visit: No Status: Chronic (5) Asthma Current Visit: Yes Status: Chronic Qualifiers: Asthma severity: mild Asthma persistence: intermittent Asthma complication type: uncomplicated Qualified Code(s): J45.20 - Mild intermittent asthma, uncomplicated - Time Spent With Patient Total time spent is greater than 50% in coordination of care (as documented) at patient's floor/unit and/or counseling patient: - Constitutional Vitals: Temp Pulse Resp BP Pulse Ox 97.7 F 97 18 142/98 98 12/07/17 07:00 12/07/17 07:00 12/07/17 07:00 12/07/17 07:00 12/07/17 07:00 Internal Medicine: Result - Labs CBC & Chem 7: 12/01/17 21:15 12/03/17 14:37 - ABG Interpretation ABG results: PT/INR, D-dimer PT 10.8 Seconds (9.4-12.1) 12/01/17 21:15 - Attending Attestation Left-sided paralysis of both upper and lower extremity , possible CVA Refused MRI despite explaining the need to demonstrate this possible diagnosis Possible conversion disorder or malingering per Neurology stable to discharge awaiting placement I examined this patient and my medical decision-making was reviewed with the Resident Physician. I agree with the documented findings, disposition and treatment plan as described except to the extent set forth below.
--- NOTE | 2017-12-07 16:23 | Electrocardiograph Report ---
[address] [address] Test Date: 2017-12-03 Pat Name: Sunil Serra Department: 111 Room: [facility] Gender: M Warp Coiler: SUDEEP : 1965 Requested By: Ellis Lomeli Order Number: [id number] Reading MD: Loc Layton Measurements Intervals [place] Rate: 106 P: 71 ID: [id number] QRS: 67 QRSD: 101 T: 59 QT: 311 QTc: 373 Interpretive Statements SINUS TACHYCARDIA WITH FREQUENT SUPRAVENTRICULAR PREMATURE COMPLEXES IN A BIGEMINAL PATTERN INCOMPLETE RIGHT BUNDLE BRANCH BLOCK ABNORMAL RHYTHM ECG Electronically Signed On 12-07-2017 16:21:39 EDT by Loc Layton
[2017-12-07] MEDS: Nicotine 21 MG PATCH.TD24 TD SCH (16:26)
[2017-12-08] MEDS: *HR* Enoxaparin 40 MG/0.4 ML SYRINGE SQ SCH (05:57)
[2017-12-08] MEDS: Aspirin 325 MG TABLET PO SCH (10:00)
[2017-12-08] MEDS: Nicotine 21 MG PATCH.TD24 TD SCH (10:00)
[2017-12-08] MEDS: FLUoxetine 20 MG CAPSULE PO SCH (10:00)
[2017-12-08] MEDS: Acetaminophen 325 MG TABLET PO PRN ×2 (10:00→20:36)
[2017-12-08] MEDS: Gabapentin 300 MG CAPSULE PO SCH ×3 (10:01→20:35)
[2017-12-08] MEDS: Fluticasone Propionate Nasal 50 MCG/SPRAY BOTTLE NS SCH (10:03)
--- NOTE | 2017-12-08 11:17 | Internal Med Progress Note ---
<Andrew Mahmood - Last Filed: 12/08/17 11:14> Date of Encounter: 12/08/17 Time of Encounter: 11:14 - Assessment and plan (1) Left-sided weakness Current Visit: Yes Status: Acute Assessment and plan: No new plans; pending D/C to rehab facility. (2) CVA (cerebral vascular accident) Current Visit: Yes Status: Suspected Assessment and plan: No new plans; pending D/C to rehab facility. Left-sided paralysis of both upper and lower extremity persist Initial CT of the head and CT angiogram of the head and neck are negative; pt unable to tolerate MRI -- repeat head CT at 72hrs negative Unable to determine organic etiology, but at deficits persist 12/08/17: no new changes in plan Qualifiers: CVA mechanism: occlusion Precerebral and cerebral artery: anterior cerebral artery Laterality of affected vessel: unspecified Qualified Code(s) : I63.529 - Cerebral infarction due to unspecified occlusion or stenosis of unspecified anterior cerebral artery (3) Seizure disorder Current Visit: No Status: Chronic Assessment and plan: Continue home Gabapentin (4) Tobacco dependence Current Visit: No Status: Chronic Assessment and plan: No new plans; pending D/C to rehab facility. (5) Asthma Current Visit: Yes Status: Chronic Assessment and plan: Continue home meds. Patient request inhaler refill prior to discharge Qualifiers: Asthma severity: mild Asthma persistence: intermittent Asthma complication type: uncomplicated Qualified Code(s): J45.20 - Mild intermittent asthma, uncomplicated - Time Spent With Patient Total time spent is greater than 50% in coordination of care (as documented) at patient's floor/unit and/or counseling patient: - Subjective Interval history: No new complaints. Awaiting placement. Per INDUSTRIAL PROPERTY APPRAISER note: Per request from Tomasa garcia [facility] requesting updates for pre-cert. - Constitutional Vitals: Temp Pulse Resp BP Pulse Ox 98.1 F 101 16 135/96 97 12/08/17 07:26 12/08/17 07:26 12/08/17 07:26 12/08/17 07:26 12/08/17 07:26 Stable Exam General appearance: Present: cooperative, A&O X 3, pleasant, no acute distress, answers questions appropriately Head exam: Present: atraumatic, normocephalic Eye exam: Present: PER, conjuntiva pink, sclera anicteric Respiratory exam: Present: CTAB without rales, respiratory distress, rhonchi, stridor, wheezes, tachypnea Cardiovascular exam: RRR, +S1, +S2. No diastolic murmur, gallop, rubs, systolic murmur GI/Abdominal exam: soft, non-tender Extremities exam: warm, radial pulses palpable and symmetrical. No calf tenderness, cyanotic, pedal edema Neurological exam: AOX3. Absent: facial droop, speech deficit. -- Additional comments: persistent LUE & LLE weakness. Sensation intact throughout. No speech deficits and no facial asymmetry. Skin exam: Present: dry, intact, normal color Internal Medicine: Result - Labs CBC & Chem 7: 12/01/17 21:15 12/03/17 14:37 - ABG Interpretation ABG results: PT/INR, D-dimer PT 10.8 Seconds (9.4-12.1) 12/01/17 21:15 Consult Discharge Plan - Plan Referrals: Manjinder Law DO [Resident] - 12/12/17 10:20 am (In [facility], where occupational health is located.) Prescriptions: Ipratropium [ATROVENT Inhaler] 2 puff IH [id number] PRN #1 inhaler PRN Reason: Shortness Of Breath/Wheezing Aspirin 325 mg PO DAILY #30 tablet Gabapentin [Neurontin] 300 mg PO TID 30 Days #90 capsule <Ellis Lomeli H - Last Filed: 12/08/17 13:52> Date of Encounter: 12/08/17 - Assessment and plan (1) Left-sided weakness Current Visit: Yes Status: Acute (2) CVA (cerebral vascular accident) Current Visit: Yes Status: Suspected Qualifiers: CVA mechanism: occlusion Precerebral and cerebral artery: anterior cerebral artery Laterality of affected vessel: unspecified Qualified Code(s) : I63.529 - Cerebral infarction due to unspecified occlusion or stenosis of unspecified anterior cerebral artery (3) Seizure disorder Current Visit: No Status: Chronic (4) Tobacco dependence Current Visit: No Status: Chronic (5) Asthma Current Visit: Yes Status: Chronic Qualifiers: Asthma severity: mild Asthma persistence: intermittent Asthma complication type: uncomplicated Qualified Code(s): J45.20 - Mild intermittent asthma, uncomplicated - Time Spent With Patient Total time spent is greater than 50% in coordination of care (as documented) at patient's floor/unit and/or counseling patient: - Constitutional Vitals: Temp Pulse Resp BP Pulse Ox 98.1 F 101 16 135/96 97 12/08/17 07:26 12/08/17 07:26 12/08/17 07:26 12/08/17 07:26 12/08/17 07:26 Internal Medicine: Result - Labs CBC & Chem 7: 12/01/17 21:15 12/03/17 14:37 - ABG Interpretation ABG results: PT/INR, D-dimer PT 10.8 Seconds (9.4-12.1) 12/01/17 21:15 - Attending Attestation Left-sided paralysis of both upper and lower extremity , possible CVA Refused MRI despite explaining the need to demonstrate this possible diagnosis Possible conversion disorder or malingering per Neurology stable to discharge awaiting placement I examined this patient and my medical decision-making was reviewed with the Resident Physician. I agree with the documented findings, disposition and treatment plan as described except to the extent set forth below.
[2017-12-08] MEDS: Ipratropium 1 PUFF INHALER IH PRN (20:48)
[2017-12-09] MEDS: *HR* Enoxaparin 40 MG/0.4 ML SYRINGE SQ SCH (06:48)
--- NOTE | 2017-12-09 07:17 | Internal Med Progress Note ---
<Andrew Mahmood - Last Filed: 12/09/17 07:12> Date of Encounter: 12/09/17 Time of Encounter: 07:12 - Assessment and plan (1) Left-sided weakness Current Visit: Yes Status: Acute Assessment and plan: No new plans; pending D/C to rehab facility. (2) CVA (cerebral vascular accident) Current Visit: Yes Status: Suspected Assessment and plan: No new plans; pending D/C to rehab facility. Left-sided paralysis of both upper and lower extremity persist Initial CT of the head and CT angiogram of the head and neck are negative; pt unable to tolerate MRI -- repeat head CT at 72hrs negative Unable to determine organic etiology, but at deficits persist 12/08/17: no new changes in plan Qualifiers: CVA mechanism: occlusion Precerebral and cerebral artery: anterior cerebral artery Laterality of affected vessel: unspecified Qualified Code(s) : I63.529 - Cerebral infarction due to unspecified occlusion or stenosis of unspecified anterior cerebral artery (3) Seizure disorder Current Visit: No Status: Chronic Assessment and plan: Continue home Gabapentin (4) Tobacco dependence Current Visit: No Status: Chronic Assessment and plan: No new plans; pending D/C to rehab facility. (5) Asthma Current Visit: Yes Status: Chronic Assessment and plan: Continue home meds. Patient request inhaler refill prior to discharge Qualifiers: Asthma severity: mild Asthma persistence: intermittent Asthma complication type: uncomplicated Qualified Code(s): J45.20 - Mild intermittent asthma, uncomplicated - Time Spent With Patient Total time spent is greater than 50% in coordination of care (as documented) at patient's floor/unit and/or counseling patient: - Subjective Interval history: No new complaints. Awaiting placement. Per RESIDENT CARE PROVIDER note: AWAIT PRIOR AUTH FOR REHAB. AT [facility] IN [place] WHICH UNFORTUNATELY MAY NOT BE REC'D UNTIL MONDAY, 12/11, THE INSURANCE COMPANY IS CLOSE OVER THE WEEKEND, AND INFORMED PT AND NURSING STAFF. - Constitutional Vitals: Temp Pulse Resp BP Pulse Ox 97.8 F 94 16 128/82 91 12/09/17 06:27 12/09/17 06:27 12/09/17 06:27 12/09/17 06:27 12/09/17 03:00 Stable Exam General appearance: Present: cooperative, A&O X 3, pleasant, no acute distress, answers questions appropriately Head exam: Present: atraumatic, normocephalic Eye exam: Present: PER, conjuntiva pink, sclera anicteric Respiratory exam: Present: CTAB without rales, respiratory distress, rhonchi, stridor, wheezes, tachypnea Cardiovascular exam: RRR, +S1, +S2. No diastolic murmur, gallop, rubs, systolic murmur GI/Abdominal exam: soft, non-tender Extremities exam: warm, radial pulses palpable and symmetrical. No calf tenderness, cyanotic, pedal edema Neurological exam: AOX3. Absent: facial droop, speech deficit. -- Additional comments: persistent LUE & LLE weakness. Sensation intact throughout. No speech deficits and no facial asymmetry. Skin exam: Present: dry, intact, normal color Psych: rapid speech, mildly anxious affect, good mood Internal Medicine: Result - Labs CBC & Chem 7: 12/01/17 21:15 12/03/17 14:37 - ABG Interpretation ABG results: PT/INR, D-dimer PT 10.8 Seconds (9.4-12.1) 12/01/17 21:15 Consult Discharge Plan - Plan Referrals: Manjinder Law DO [Resident] - 12/12/17 10:20 am (In [facility], where occupational health is located.) Prescriptions: Ipratropium [ATROVENT Inhaler] 2 puff IH [id number] PRN #1 inhaler PRN Reason: Shortness Of Breath/Wheezing Aspirin 325 mg PO DAILY #30 tablet Gabapentin [Neurontin] 300 mg PO TID 30 Days #90 capsule <Ellis Lomeli H - Last Filed: 12/09/17 14:38> Date of Encounter: 12/09/17 - Assessment and plan (1) Left-sided weakness Current Visit: Yes Status: Acute (2) CVA (cerebral vascular accident) Current Visit: Yes Status: Suspected Qualifiers: CVA mechanism: occlusion Precerebral and cerebral artery: anterior cerebral artery Laterality of affected vessel: unspecified Qualified Code(s) : I63.529 - Cerebral infarction due to unspecified occlusion or stenosis of unspecified anterior cerebral artery (3) Seizure disorder Current Visit: No Status: Chronic (4) Tobacco dependence Current Visit: No Status: Chronic (5) Asthma Current Visit: Yes Status: Chronic Qualifiers: Asthma severity: mild Asthma persistence: intermittent Asthma complication type: uncomplicated Qualified Code(s): J45.20 - Mild intermittent asthma, uncomplicated - Time Spent With Patient Total time spent is greater than 50% in coordination of care (as documented) at patient's floor/unit and/or counseling patient: - Constitutional Vitals: Temp Pulse Resp BP Pulse Ox 97.8 F 94 16 128/82 91 12/09/17 06:27 12/09/17 06:27 12/09/17 06:27 12/09/17 06:27 12/09/17 03:00 Internal Medicine: Result - Labs CBC & Chem 7: 12/01/17 21:15 12/03/17 14:37 - ABG Interpretation ABG results: PT/INR, D-dimer PT 10.8 Seconds (9.4-12.1) 12/01/17 21:15 - Attending Attestation Left-sided paralysis of both upper and lower extremity , possible CVA Refused MRI despite explaining the need to demonstrate this possible diagnosis Possible conversion disorder or malingering per Neurology stable to discharge when placement is arranged, awaiting insurance authorization I examined this patient and my medical decision-making was reviewed with the Resident Physician. I agree with the documented findings, disposition and treatment plan as described except to the extent set forth below.
[2017-12-09] MEDS: Aspirin 325 MG TABLET PO SCH (10:03)
[2017-12-09] MEDS: Fluticasone Propionate Nasal 50 MCG/SPRAY BOTTLE NS SCH (10:03)
[2017-12-09] MEDS: FLUoxetine 20 MG CAPSULE PO SCH (10:03)
[2017-12-09] MEDS: Gabapentin 300 MG CAPSULE PO SCH ×3 (10:03→22:18)
[2017-12-09] MEDS: Nicotine 21 MG PATCH.TD24 TD SCH (10:03)
[2017-12-10] MEDS: Acetaminophen 325 MG TABLET PO PRN ×3 (01:47→18:51)
[2017-12-10] MEDS: *HR* Enoxaparin 40 MG/0.4 ML SYRINGE SQ SCH (06:25)
--- NOTE | 2017-12-10 07:39 | Internal Med Progress Note ---
<Andrew Mahmood - Last Filed: 12/10/17 07:37> Date of Encounter: 12/10/17 Time of Encounter: 07:37 - Assessment and plan (1) Left-sided weakness Current Visit: Yes Status: Acute Assessment and plan: No new plans; pending D/C to rehab facility likely 12/11/2017. Patient did refuse PT treatment yesterday. (2) CVA (cerebral vascular accident) Current Visit: Yes Status: Suspected Assessment and plan: No new plans; pending D/C to rehab facility. Left-sided paralysis of both upper and lower extremity persist Initial CT of the head and CT angiogram of the head and neck are negative; pt unable to tolerate MRI -- repeat head CT at 72hrs negative Unable to determine organic etiology, but at deficits persist 12/09/17: no new changes in plan Qualifiers: CVA mechanism: occlusion Precerebral and cerebral artery: anterior cerebral artery Laterality of affected vessel: unspecified Qualified Code(s) : I63.529 - Cerebral infarction due to unspecified occlusion or stenosis of unspecified anterior cerebral artery (3) Seizure disorder Current Visit: No Status: Chronic Assessment and plan: Continue home Gabapentin; (4) Tobacco dependence Current Visit: No Status: Chronic Assessment and plan: No new plans; pending D/C to rehab facility. (5) Asthma Current Visit: Yes Status: Chronic Assessment and plan: Continue home meds; no new respiratory symptoms. Qualifiers: Asthma severity: mild Asthma persistence: intermittent Asthma complication type: uncomplicated Qualified Code(s): J45.20 - Mild intermittent asthma, uncomplicated - Time Spent With Patient Total time spent is greater than 50% in coordination of care (as documented) at patient's floor/unit and/or counseling patient: - Subjective Interval history: No new complaints. Awaiting placement. Per SANDAL PARTS ASSEMBLER note: AWAIT PRIOR AUTH FOR REHAB. AT [facility] IN [place] WHICH UNFORTUNATELY MAY NOT BE REC'D UNTIL MONDAY, 12/11, THE INSURANCE COMPANY IS CLOSE OVER THE WEEKEND, AND INFORMED PT AND NURSING STAFF. - Constitutional Vitals: Temp Pulse Resp BP Pulse Ox 97.6 F 56 17 123/79 97 12/10/17 03:32 12/10/17 03:32 12/10/17 03:32 12/10/17 03:32 12/10/17 03:32 Stable Exam from 12/09/17 General appearance: Present: cooperative, A&O X 3, pleasant, no acute distress, answers questions appropriately Head exam: Present: atraumatic, normocephalic Eye exam: Present: PER, conjuntiva pink, sclera anicteric Respiratory exam: Present: CTAB without rales, respiratory distress, rhonchi, stridor, wheezes, tachypnea Cardiovascular exam: RRR, +S1, +S2. No diastolic murmur, gallop, rubs, systolic murmur GI/Abdominal exam: soft, non-tender Extremities exam: warm, radial pulses palpable and symmetrical. No calf tenderness, cyanotic, pedal edema Neurological exam: AOX3. Absent: facial droop, speech deficit. -- Additional comments: persistent LUE & LLE weakness. Sensation intact throughout. No speech deficits and no facial asymmetry. Skin exam: Present: dry, intact, normal color Psych: rapid speech, mildly anxious affect, good mood Internal Medicine: Result - Labs CBC & Chem 7: 12/01/17 21:15 12/03/17 14:37 - ABG Interpretation ABG results: PT/INR, D-dimer PT 10.8 Seconds (9.4-12.1) 12/01/17 21:15 Consult Discharge Plan - Plan Referrals: Manjinder Law DO [Resident] - 12/12/17 10:20 am (In [facility], where occupational health is located.) Prescriptions: Ipratropium [ATROVENT Inhaler] 2 puff IH [id number] PRN #1 inhaler PRN Reason: Shortness Of Breath/Wheezing Aspirin 325 mg PO DAILY #30 tablet Gabapentin [Neurontin] 300 mg PO TID 30 Days #90 capsule <Ellis Lomeli H - Last Filed: 12/10/17 12:00> Date of Encounter: 12/10/17 - Assessment and plan (1) Left-sided weakness Current Visit: Yes Status: Acute (2) CVA (cerebral vascular accident) Current Visit: Yes Status: Suspected Qualifiers: CVA mechanism: occlusion Precerebral and cerebral artery: anterior cerebral artery Laterality of affected vessel: unspecified Qualified Code(s) : I63.529 - Cerebral infarction due to unspecified occlusion or stenosis of unspecified anterior cerebral artery (3) Seizure disorder Current Visit: No Status: Chronic (4) Tobacco dependence Current Visit: No Status: Chronic (5) Asthma Current Visit: Yes Status: Chronic Qualifiers: Asthma severity: mild Asthma persistence: intermittent Asthma complication type: uncomplicated Qualified Code(s): J45.20 - Mild intermittent asthma, uncomplicated - Time Spent With Patient Total time spent is greater than 50% in coordination of care (as documented) at patient's floor/unit and/or counseling patient: - Constitutional Vitals: Temp Pulse Resp BP Pulse Ox 98.9 F 75 18 153/89 96 12/10/17 11:21 12/10/17 11:21 12/10/17 11:21 12/10/17 11:21 12/10/17 11:21 Internal Medicine: Result - Labs CBC & Chem 7: 12/01/17 21:15 12/03/17 14:37 - ABG Interpretation ABG results: PT/INR, D-dimer PT 10.8 Seconds (9.4-12.1) 12/01/17 21:15 - Attending Attestation Left-sided paralysis of both upper and lower extremity , possible CVA Refused MRI despite explaining the need to demonstrate this possible diagnosis Possible conversion disorder or malingering per Neurology stable to discharge when placement is arranged, awaiting insurance authorization I examined this patient and my medical decision-making was reviewed with the Resident Physician. I agree with the documented findings, disposition and treatment plan as described except to the extent set forth below.
[2017-12-10] MEDS: Gabapentin 300 MG CAPSULE PO SCH ×3 (10:08→21:45)
[2017-12-10] MEDS: Aspirin 325 MG TABLET PO SCH (10:08)
[2017-12-10] MEDS: FLUoxetine 20 MG CAPSULE PO SCH (10:08)
[2017-12-10] MEDS: Nicotine 21 MG PATCH.TD24 TD SCH (10:08)
[2017-12-10] MEDS: Fluticasone Propionate Nasal 50 MCG/SPRAY BOTTLE NS SCH (10:10)
[2017-12-11] MEDS: Acetaminophen 325 MG TABLET PO PRN ×2 (01:09→08:07)
[2017-12-11] MEDS: *HR* Enoxaparin 40 MG/0.4 ML SYRINGE SQ SCH (06:46)
[2017-12-11 06:56] VITALS: BP 122/99
[2017-12-11] MEDS: Gabapentin 300 MG CAPSULE PO SCH (08:07)
[2017-12-11] MEDS: Aspirin 325 MG TABLET PO SCH (08:07)
[2017-12-11] MEDS: FLUoxetine 20 MG CAPSULE PO SCH (08:07)
[2017-12-11] MEDS: Nicotine 21 MG PATCH.TD24 TD SCH (08:08)
[2017-12-11] MEDS: Fluticasone Propionate Nasal 50 MCG/SPRAY BOTTLE NS SCH (08:08)
--- NOTE | 2017-12-11 09:23 | Internal Med Progress Note ---
<Andrew Mahmood - Last Filed: 12/11/17 09:21> Date of Encounter: 12/11/17 Time of Encounter: 09:22 - Assessment and plan (1) Left-sided weakness Current Visit: Yes Status: Acute Assessment and plan: No new plans; pending D/C to rehab facility likely 12/11/2017. Patient did refuse PT treatment yesterday. (2) CVA (cerebral vascular accident) Current Visit: Yes Status: Suspected Assessment and plan: No new plans; pending D/C to rehab facility. Left-sided paralysis of both upper and lower extremity persist Initial CT of the head and CT angiogram of the head and neck are negative; pt unable to tolerate MRI -- repeat head CT at 72hrs negative Unable to determine organic etiology, but at deficits persist 12/09/17: no new changes in plan Qualifiers: CVA mechanism: occlusion Precerebral and cerebral artery: anterior cerebral artery Laterality of affected vessel: unspecified Qualified Code(s) : I63.529 - Cerebral infarction due to unspecified occlusion or stenosis of unspecified anterior cerebral artery (3) Seizure disorder Current Visit: No Status: Chronic Assessment and plan: Continue home Gabapentin; (4) Tobacco dependence Current Visit: No Status: Chronic Assessment and plan: No new plans; pending D/C to rehab facility. (5) Asthma Current Visit: Yes Status: Chronic Assessment and plan: Continue home meds; no new respiratory symptoms. Qualifiers: Asthma severity: mild Asthma persistence: intermittent Asthma complication type: uncomplicated Qualified Code(s): J45.20 - Mild intermittent asthma, uncomplicated - Time Spent With Patient Total time spent is greater than 50% in coordination of care (as documented) at patient's floor/unit and/or counseling patient: - Subjective Interval history: No new complaints. Awaiting placement. Pt anxious for transfer and states will elope if not soon. Per SEALANT MIXER note: AWAIT PRIOR AUTH FOR REHAB. AT [facility] IN [place] WHICH UNFORTUNATELY MAY NOT BE REC'D UNTIL MONDAY, 12/11, THE INSURANCE COMPANY IS CLOSE OVER THE WEEKEND, AND INFORMED PT AND NURSING STAFF. - Constitutional Vitals: Temp Pulse Resp BP Pulse Ox 97.6 F 91 18 122/99 96 12/11/17 06:55 12/11/17 06:55 12/11/17 06:55 12/11/17 06:55 12/11/17 06:55 Stable Exam from 12/10/17 General appearance: Present: cooperative, A&O X 3, pleasant, no acute distress, answers questions appropriately Head exam: Present: atraumatic, normocephalic Eye exam: Present: PER, conjuntiva pink, sclera anicteric Respiratory exam: Present: CTAB without rales, respiratory distress, rhonchi, stridor, wheezes, tachypnea Cardiovascular exam: RRR, +S1, +S2. No diastolic murmur, gallop, rubs, systolic murmur GI/Abdominal exam: soft, non-tender Extremities exam: warm, radial pulses palpable and symmetrical. No calf tenderness, cyanotic, pedal edema Neurological exam: AOX3. Absent: facial droop, speech deficit. -- Additional comments: persistent LUE & LLE weakness. Sensation intact throughout. No speech deficits and no facial asymmetry. Skin exam: Present: dry, intact, normal color Psych: rapid speech, mildly anxious affect, good mood Internal Medicine: Result - Labs CBC & Chem 7: 12/01/17 21:15 12/03/17 14:37 - ABG Interpretation ABG results: PT/INR, D-dimer PT 10.8 Seconds (9.4-12.1) 12/01/17 21:15 Consult Discharge Plan - Plan Referrals: Manjinder Law DO [Resident] - 12/12/17 10:20 am (In [facility], where occupational health is located.) Prescriptions: Ipratropium [ATROVENT Inhaler] 2 puff IH [id number] PRN #1 inhaler PRN Reason: Shortness Of Breath/Wheezing Aspirin 325 mg PO DAILY #30 tablet Gabapentin [Neurontin] 300 mg PO TID 30 Days #90 capsule <Ellis Lomeli H - Last Filed: 12/11/17 10:38> Date of Encounter: 12/11/17 - Assessment and plan (1) Left-sided weakness Current Visit: Yes Status: Acute (2) CVA (cerebral vascular accident) Current Visit: Yes Status: Suspected Qualifiers: CVA mechanism: occlusion Precerebral and cerebral artery: anterior cerebral artery Laterality of affected vessel: unspecified Qualified Code(s) : I63.529 - Cerebral infarction due to unspecified occlusion or stenosis of unspecified anterior cerebral artery (3) Seizure disorder Current Visit: No Status: Chronic (4) Tobacco dependence Current Visit: No Status: Chronic (5) Asthma Current Visit: Yes Status: Chronic Qualifiers: Asthma severity: mild Asthma persistence: intermittent Asthma complication type: uncomplicated Qualified Code(s): J45.20 - Mild intermittent asthma, uncomplicated - Time Spent With Patient Total time spent is greater than 50% in coordination of care (as documented) at patient's floor/unit and/or counseling patient: - Constitutional Vitals: Temp Pulse Resp BP Pulse Ox 97.6 F 91 18 122/99 96 12/11/17 06:55 12/11/17 06:55 12/11/17 06:55 12/11/17 06:55 12/11/17 06:55 Internal Medicine: Result - Labs CBC & Chem 7: 12/01/17 21:15 12/03/17 14:37 - ABG Interpretation ABG results: PT/INR, D-dimer PT 10.8 Seconds (9.4-12.1) 12/01/17 21:15 - Attending Attestation Left-sided paralysis of both upper and lower extremity , possible CVA Refused MRI despite explaining the need to demonstrate this possible diagnosis Possible conversion disorder or malingering per Neurology stable to discharge when placement is arranged, awaiting insurance authorization I examined this patient and my medical decision-making was reviewed with the Resident Physician. I agree with the documented findings, disposition and treatment plan as described except to the extent set forth below.
== END 2017-12-11 16:44 ==
LOC: 2NENU 20:49 → EMEROO 20:49 → SUATTDRO 23:27 → 2NENU 12-02 00:23
PROVIDERS: ADMIT Internal Medicine; ATTEND Internal Medicine